=== PATIENT | female | born 1960 | race Caucasian/White ===

== ENCOUNTER 2017-11-12 06:48 | Emergency (ER) | payer OTHER ==
[2017-11-12 07:13] VITALS: BP 161/106
--- NOTE | 2017-11-12 07:37 | ED Physician Documentation ---
PD HPI WOUND RECHECK - Stated complaint Stated Complaint: LT KNEE REDNESS/SWELLING/S/P SURGERY - Chief complaint Chief Complaint: Ext Problem - Histroy obtained from History obtained from: Patient - History of Present Illness Location: Left Lower Extremity (redness and swelling with some bruising color around left knee, 4 days post op knee [facility] at [facility] Timing - onset: How many days ago (surgery 3 days ago and discharged 2 days ago , with drain out at that time. Has had increased pain and swelling the past 2 days, more today. Has some redness and warmth anteriorly. Also with some bruising showing up medially and inferior to the knee.) Associated symptoms: Redness, Swelling, Pain. No: Fever, Drainage Similar symptoms before: Has not had sx before Recently seen: Surgery Review of Systems Constitutional: denies: Fever, Chills, Myalgias, Fatigue Nose: denies: Rhinorrhea / runny nose, Congestion Throat: denies: Sore throat Cardiac: denies: Chest pain / pressure, Palpitations, Calf pain Respiratory: denies: Dyspnea, Cough PD PAST MEDICAL HISTORY - Past Medical History Cardiovascular: None Respiratory: None Neuro: None Endocrine/Autoimmune: None Musculoskeletal: Osteoarthritis - Past Surgical History Past Surgical History: No - Present Medications Home Medications: Ambulatory Orders Medication Instructions Recorded Confirmed HYDROcod/ACETAM 5/325 [Vicodin 1 - 2 ea PO Q6H PRN #15 tablet 10/02/13 5/325] Cephalexin [Keflex] 500 mg PO TID #15 capsule 11/12/17 Naproxen [Naprosyn] 500 mg PO BID PRN #20 tablet 11/12/17 Sulfamethox/Trimeth 800/160 1 each PO BID #10 tablet 11/12/17 [Bactrim Ds 800/160] - Allergies Allergies/Adverse Reactions: Allergies Allergy/AdvReac Type Severity Reaction Status Date / Time No Known Drug Allergies Allergy Verified 11/12/17 07:03 - Social History Does the pt smoke?: No Smoking Status: Never smoker Does the pt drink ETOH?: No Does the pt have substance abuse?: No - Immunizations Immunizations are current?: Yes PD ED PE NORMAL - Vitals Vital signs reviewed: Yes - General General: Alert and oriented X 3, No acute distress, Well developed/nourished - Neck Neck: Supple, no meningeal sign, No adenopathy - Cardiac Cardiac: RRR, No murmur - Respiratory Respiratory: No respiratory distress, Clear bilaterally - Abdomen Abdomen: Soft, Non tender - Derm Derm: Normal color, Warm and dry - Extremities Extremities: No deformity, Other (left anterior knee with stapled surgical wound c/w knee replacement. There is some warmth and redness around the wound and also along the medial aspect of the knee. There is some bruising noted on the medial aspect of the knee and medial aspect of the mid to proximal tibial area. There is no tenderness in the popliteal area. The posterior calf is not tender. There is general swelling around the knee and a little bit down through the lower leg and foot. There is good color sensation and pulses and capillary refill in the foot and toes. She states she has a little bit less range of motion of the knee compared to 2 days ago because of the swelling. Slight serous drainage from lower part of the incision site. Culture obtained. ) - Neuro Neuro: Alert and oriented X 3, No motor deficit, No sensory deficit - Psych Psych: Normal mood, Normal affect Results - Vitals Vitals: Oxygen O2 Source Room air - Labs Labs: Microbiology 11/12/17 07:54 Wound Culture - Preliminary Knee - Left No growth Laboratory Tests 11/12/17 11/12/17 08:07 08:07 WBC 5.3 RBC 3.56 L Hgb 10.4 L Hct 30.6 L MCV 85.9 MCH 29.3 MCHC 34.1 RDW 14.0 Plt Count 193 MPV 7.1 L Neut # 3.7 Lymph # 1.2 L Weakley # 0.3 Eos # 0.1 Baso # 0.0 Absolute Nucleated RBC 0.00 Nucleated RBC % 0.0 ESR 70 H - Rads (name of study) duplex Radiology: Prelim report reviewed (no DVT) PD MEDICAL DECISION MAKING - ED course Complexity details: reviewed results, considered differential (looks more inflammatory and reaction to hematoma/bleeding but still concern for early infection.), d/w patient, 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 It does appear more to be inflammatory from the bruising and likely there is some hematoma or blood collection in there. The on-call orthopedist left up to my discretion if of concern for early infection whether antibiotics or not. It is not obviously infected but I think going to some antibiotics pending the culture anyway can be reasonable given the redness and warmth of it. I would also add naproxen anti- inflammatory twice daily. Rest ice and Pavan wrap for the need to reduce swelling. Call Dr. Lara's office Monday to see if they want a sooner follow-up or just the one as scheduled. Cephalexin and Bactrim other antibiotics for the next 3-5 days pending follow-up. Discharge Date/Time: 11/12/17 10:21
[2017-11-12] MEDS ORDERED: MUPIROCIN 2% OINT 1 GM TOP STA (07:54)
[2017-11-12 08:13] LABS: BASOPHILS % (AUTO) 0.4 %; EOSINOPHILS # (AUTO) 0.1 10^3/uL (0.0-0.7); EOSINOPHILS % (AUTO) 1.1 %; HGB - HEMOGLOBIN 10.4 g/dL (12.0-16.0); LYMPHOCYTES # (AUTO) 1.2 10^3/uL (1.5-3.5); LYMPHOCYTES % (AUTO) 23.1 %; MEAN CORPUSCULAR HEMOGLOBIN 29.3 pg (27.0-31.0); MEAN CORPUSCULAR HGB CONC 34.1 g/dL (32.0-36.0); MEAN CORPUSCULAR VOLUME 85.9 fL (81.0-99.0); MEAN PLATELET VOLUME 7.1 fL (7.9-10.8); MONOCYTES # (AUTO) 0.3 10^3/uL (0.0-1.0); MONOCYTES % (AUTO) 6.4 %; NEUTROPHILS # (AUTO) 3.7 10^3/uL (1.5-6.6); PLT - PLATELET COUNT 193 10^3/uL (130-450); RED BLOOD COUNT 3.56 10^6/uL (4.20-5.40); WHITE BLOOD COUNT 5.3 x10^3/uL (4.8-10.8)
--- NOTE | 2017-11-12 09:41 | Ultrasound Report ---
EXAM: LEFT LOWER EXTREMITY VENOUS ULTRASOUND EXAM DATE: 11/12/2017 09:12 AM. CLINICAL HISTORY: Left knee swelling post op. COMPARISON: None. TECHNIQUE: Real-time sonographic vascular imaging was performed by the special agent in charge through the lower extremity utilizing both color-flow and Doppler spectral analysis. Multiple technology sales representative static nannette ges were saved for review. FINDINGS: Common Femoral Vein (CFV): Normal. CFV-GSV Junction: Normal. Profunda Femoral Vein (PFV): Normal. Femoral Vein (FV) Prox: Normal. Femoral Vein (FV) Mid: Normal. Femoral Vein (FV) Dist: Normal. Popliteal Vein: Normal. Posterior Tibial Veins: Normal. Peroneal Veins: Normal. Other: None. IMPRESSION: No evidence for deep venous thrombosis. [facility] Referring Provider Line: [phone] SITE ID: [id number]
[2017-11-12] MEDS ORDERED: SULFAMETH/TRIMETH DS 800/160 MG TABLET PO STA (09:46)
[2017-11-12] MEDS ORDERED: cephALEXin 250 MG CAPSULE PO STA (09:46)
== END 2017-11-12 10:21 | disposition home or self-care (01) ==
LOC: ED 06:48
DX: R60.1 Generalized edema (principal); G89.18 Other acute postprocedural pain; Z96.652 Presence of left artificial knee joint; M19.90 Unspecified osteoarthritis, unspecified site
CPT/HCPCS: 36415; 85025; 85651; 87070; 87205; 93971; 99283; 99284; A9270

== ENCOUNTER 2020-02-10 12:07 | Outpatient (CLI) | payer OTHER ==
--- NOTE | 2020-02-10 12:55 | XRAY Report ---
PROCEDURE: Wrist 4 View LT INDICATIONS: left wrist pain TECHNIQUE: 4 views of the wrist were acquired. COMPARISON: None FINDINGS: Bones: Moderate to severe osteoarthritic changes are noted throughout wrist joints most prominent in volving first CMC joint. No fractures or dislocations. No suspicious bony lesions. Scaphoid view: Scaphoid is grossly intact. Soft tissues: No suspicious soft tissue calcifications. Soft tissue swelling over dorsal aspect of distal forearm is seen. IMPRESSION: Osteoarthritis throughout wrist joints. No gross acute wrist fracture or dislocation. Distal forearm soft tissue swelling. Reviewed by: Charbel Askew MD on 02/10/2020 12:54 PM PDT Approved by: Charbel Askew MD on 02/10/2020 12:54 PM PDT Station ID: [id number]
== END 2020-02-10 12:08 | disposition home or self-care (01) ==
LOC: DI.S 12:07
PROVIDERS: ATTEND Physician Assistant Medical
DX: M19.032 Primary osteoarthritis, left wrist (principal)

== ENCOUNTER 2021-07-10 17:39 | Outpatient (CLI) | payer OTHER | END 2021-07-10 17:40 | disposition EMS.NT | LOC: EMS 17:39 | DX: Z03.89 Encounter for observation for other suspected diseases and conditions ruled out (principal) ==

== ENCOUNTER 2022-05-30 15:36 | Outpatient (CLI) | payer OTHER ==
--- NOTE | 2022-05-30 16:49 | XRAY Report ---
PROCEDURE: Knee Standing LT INDICATIONS: CONTUSION OF LEFT KNEE TECHNIQUE: 4 views of the left knee are obtained. COMPARISON: None. FINDINGS: Bones: No acute fractures or dislocations. Near the possibility is been performed. No suspicious deric ny lesions. Joint spaces appear normal with weightbearing. Soft tissues: No knee joint effusions. No suspicious soft tissue calcification. IMPRESSION: No acute fracture. No osseous lesion. If symptoms and/or clinical suspicion for pathology continue, f urther assessment with repeat plain films, or advanced imaging (e.g., CT, MRI, or bone scan) is recom mended for further assessment. Reviewed by: Angelo Van MD on 05/30/2022 4:48 PM PDT Approved by: Angelo Van MD on 05/30/2022 4:48 PM PDT Station ID: [id number]
== END 2022-05-30 15:37 | disposition home or self-care (01) ==
LOC: DI.S 15:36
PROVIDERS: ATTEND Physician Assistant
DX: S80.02XA Contusion of left knee, initial encounter (principal)